=== PATIENT | female | born 1960 | race Caucasian/White ===

== ENCOUNTER 2023-02-13 12:15 | Emergency (ER) | payer MEDICAID ==
[~2023-02-13] VITALS: Ht 162.6 cm; Wt 85.7 kg
[2023-02-13 13:01] VITALS: BP_SYST 146; PULSE 64; RESP 16; TEMP 97.8; O2SAT 94
[2023-02-13 14:10] LABS: BASOPHILS # (AUTO) 0.1 K/uL (0.0-0.2); BASOPHILS % (AUTO) 0.6 % (0.0-2.0); EOSINOPHILS # (AUTO) 0.2 K/uL (0.0-0.4); EOSINOPHILS % (AUTO) 1.7 % (0.0-4.0); HEMATOCRIT 44.6 % (36-48); HEMOGLOBIN 14.8 g/dL (12.0-16.0); LYMPHOCYTES # (AUTO) 4.4 K/uL (1.0-5.5); LYMPHOCYTES % (AUTO) 41.2 % (20.5-51.5); MEAN CORPUSCULAR HEMOGLOBIN 29 pg (27-31); MEAN CORPUSCULAR HGB CONC 33 % (32-36); MEAN CORPUSCULAR VOLUME 88 fL (79.0-98.0); MONOCYTES # (AUTO) 0.6 K/uL (0.0-1.0); MONOCYTES % (AUTO) 5.5 % (1.7-9.3); NEUTROPHILS # (AUTO) 5.4 K/uL (1.8-7.7); PLATELET COUNT (AUTO) 324 K/uL (130-430); RED BLOOD CELL COUNT(AUTO) 5.09 MIL/uL (4.2-6.2); RED CELL DISTRIBUTION WIDTH 14.6 % (9.0-15.0); WHITE BLOOD COUNT (AUTO) 10.6 K/uL (4.8-10.8)
[2023-02-13 14:29] LABS: ALANINE AMINOTRANSFERASE 26 U/L (12-78); ALBUMIN 3.8 g/dL (3.4-4.8); ANION GAP 5 (5-15); ASPARTATE AMINOTRANSFERASE 19 U/L (10-37); CALCIUM 8.9 mg/dL (8.4-11.0); CHLORIDE 103 mmol/L (98-107); CREATININE 0.63 mg/dL (0.55-1.30); GFR AFRICAN AMERICAN 123 mL/min (>90); GLUCOSE 101 mg/dL (74-106); TOTAL BILIRUBIN 0.4 mg/dL (0.0-1.0); UREA NITROGEN, BLOOD 10 mg/dL (8-21)
[2023-02-13] MEDS ORDERED: MORPHINE 4 MG INJ. 4 MG/ML VIAL IM ONE (15:00)
--- NOTE | 2023-02-13 16:20 | NUR ---
In ER bed 4 C/O Headache and generalized pain MD has seen Medicated as ordered
[2023-02-13] MEDS ORDERED: CYCLOBENZAPRINE HCL 10 MG TABLET (FLEXERIL) PO ONE (16:45)
[2023-02-13] MEDS ORDERED: LIDOCAINE PATCH 5% 1 EA TP ONE (16:45)
[2023-02-13] MEDS ORDERED: ACET325T53 PO (16:46)
[2023-02-13] MEDS ORDERED: CYCL10TA24 PO (16:47)
[2023-02-13] MEDS ORDERED: LIDO1ADH22 TP (16:47)
[2023-02-13] MEDS ORDERED: DICL20GE TP (16:48)
[2023-02-13 17:34] VITALS: BP_SYST 176; PULSE 84; RESP 18; TEMP 98.2; O2SAT 98
--- NOTE | 2023-02-13 17:41 | NUR ---
Stable VSS Pain free MD has reassessed and Dc'd home To exit
== END 2023-02-13 17:34 | disposition home or self-care (01) ==
LOC: SED 12:15
DX: S16.1XXA Strain of muscle, fascia and tendon at neck level, initial encounter (principal); S46.812A Strain of other muscles, fascia and tendons at shoulder and upper arm level, left arm, initial encounter; S00.33XA Contusion of nose, initial encounter; S09.90XA Unspecified injury of head, initial encounter; R55 Syncope and collapse; Z79.899 Other long term (current) drug therapy; X58.XXXA Exposure to other specified factors, initial encounter; Y93.89 Activity, other specified; Y92.89 Other specified places as the place of occurrence of the external cause; Y99.8 Other external cause status
CPT/HCPCS: 99285; 70450; 71045; 80053; 83880; 85025; 84484; 36415; 93005; 73020; 70486; 72125; 96372; 76376; J2270